=== PATIENT | male | born 1990 ===

== ENCOUNTER 2018-06-24 07:55 | Emergency (ER) | payer SELFPAY ==
[2018-06-24 08:57] VITALS: BP 131/86
--- NOTE | 2018-06-24 09:28 | UC ---
Complaint Male HPI - HPI Summary HPI Summary: Pt presents with c/o of painful urination and occasional nosebleeds with very hot weather or cold weather. Pt reports that he has a new sexually partner and now has c/o dysuria no penile discharge, no fever chills or pain with BM. - History of Current Complaint Chief Complaint: UCGeneralIllness Stated Complaint: SKIN CONCERN Time Seen by Provider: 06/24/18 08:14 Hx Obtained From: Patient, [employer] Super[employer] Onset/Duration: Sudden Onset, Still Present Severity Initially: Mild Severity Currently: Mild Pain Intensity: 0 Location: Penis Character: Burning Associated Signs And Symptoms: Positive: Dysuria - Risk Factors Testicular Torsion: Negative - Allergies/Home Medications Allergies/Adverse Reactions: Allergies Allergy/AdvReac Type Severity Reaction Status Date / Time No Known Allergies Allergy Verified 06/24/18 08:29 Home Medications: Home Medications NK [No Home Medications Reported] 06/24/18 [History Confirmed 06/24/18] PMH/Surg Hx/FS Hx/Imm Hx Previously Healthy: Yes - Surgical History Surgical History: None - Family History Known Family History: Positive: Cardiac Disease - Social History Occupation: Employed Full-time Lives: With Family Alcohol Use: Occasionally Substance Use Type: None Smoking Status (MU): Former Smoker Type: Cigarettes Have You Smoked in the Last Year: Yes When Did the Patient Quit Smoking/Using Tobacco: 6 MONTHS AGO Review of Systems Constitutional: Negative Skin: Negative Eyes: Negative ENT: Epistaxis - occasional Respiratory: Negative Cardiovascular: Negative Gastrointestinal: Negative Genitourinary: Dysuria Motor: Negative Neurovascular: Negative Musculoskeletal: Negative Neurological: Negative Psychological: Negative Is Patient Immunocompromised?: No All Other Systems Reviewed And Are Negative: Yes Physical Exam Triage Information Reviewed: Yes Appearance: Well-Appearing Vital Signs: Initial Vital Signs Temp 97.9 F 06/24/18 08:32 Pulse 73 06/24/18 08:32 Resp 18 06/24/18 08:32 BP 131/86 06/24/18 08:32 Pulse Ox 100 06/24/18 08:32 Vital Signs Reviewed: Yes Eye Exam: Normal ENT Exam: Normal Dental Exam: Normal Neck exam: Normal Respiratory Exam: Normal Cardiovascular Exam: Normal Abdominal Exam: Normal Abdomen Description: Positive: Nontender Musculoskeletal Exam: Normal Neurological Exam: Normal Psychological Exam: Normal Skin Exam: Normal Complaint Male Course/Dx - Differential Dx/Diagnosis Differential Diagnosis/HQI/PQRI: Urinary Tract Infection, Other - urethritis Provider Diagnoses: urethritis Discharge - Sign-Out/Discharge Documenting (check all that apply): Patient Departure All imaging exams completed and their final reports reviewed: No Studies - Discharge Plan Condition: Stable Disposition: HOME Patient Education Materials: Sexually Transmitted Diseases (ED), Safe Sex (ED) , Nosebleed (ED) Print Language: GUYANESE Referrals: No Primary Care Phys,NOPCP [Primary Care Provider] - [facility] [Outside] - If Needed - Billing Disposition and Condition Condition: STABLE Disposition: Home
[2018-06-24] MEDS ORDERED: cefTRIAXone VIAL(*) 250 MG VIAL IM ONE (09:32)
[2018-06-24] MEDS ORDERED: Azithromycin TAB* 250 MG PO ONE (09:32)
[2018-06-24] MEDS ORDERED: Lidocaine 1% MPF* 2 ML VIAL ONE (09:53)
[2018-06-24] MEDS: Neosporin TOPICAL OINT* 1 EA PACKET TOPICAL SCH ×2 (10:24→10:25)
== END 2018-06-24 10:55 | disposition home or self-care (01) ==
LOC: UCCORT 07:55
DX: N34.2 Other urethritis (principal); Z87.891 Personal history of nicotine dependence
CPT/HCPCS: 36415; 81003; 86703; 87491; 87591; 96372; 99203; A9270-GY; G0463; J0696